=== PATIENT | female | born 1945 | race Caucasian/White ===

== ENCOUNTER 2016-08-26 20:04 | Emergency (ER) ==
[2016-08-26 20:21] VITALS: BP 189/127; TEMP 98.2; BMI 27.1
[2016-08-26] MEDS ORDERED: CATAPRES PO STA ×2 (20:39→22:57)
[2016-08-26] MEDS ORDERED: MORPHINE 2 MG/ML SYRINGE IM STA (20:39)
[2016-08-26] MEDS ORDERED: ASPIRIN CHEWABLE PO STA (20:39)
--- NOTE | 2016-08-26 20:59 | CT ---
EXAM: CT scan of the head without contrast HISTORY: Headache TECHNIQUE: Imaging of the head was performed without intravenous contrast. 5 mm thin axial images and coronal images were provided for interpretation. FINDINGS: The woo-white interface appears normal. No acute hemorrhages are seen. There is no mas s effect. The basal cisterns are patent. The paranasal sinuses and mastoid air cells are clear. Th e calvarium and extracranial soft tissues are normal. IMPRESSION: No acute intracranial abnormalities are seen.
--- NOTE | 2016-08-26 21:00 | ED.PDOC ---
General ED Provider: Dr. MARA ALFORD Chief Complaint: Headache Stated Complaint: Having migraine headache for couple days, says its her typical headache, also started telling about her chest pain, left sided, hurting for 1 months, on and off, she she takes metoprolol. Time Seen by Physician: 20:51 Mode of Arrival: Wheelchair Information Source: Patient Nursing and Triage Documentation Reviewed and Agree: Yes Neurological Complaint Exam - Headache Complaint/Exam Onset: Gradual Symptoms Are: Still present Timing: Constant Episodes Lasting: Weeks Worst Headache Ever: No Initial Severity: Moderate Current Severity: Moderate Location: Left, Frontal, Temporal Character: Reports: Throbbing, Radiating, Migraine Aggravating: Reports: Bright lights Alleviating: Reports: None Associated Signs and Symptoms: Denies: Dizziness, Seizure, Nausea, Vomiting, Sinus pressure, Fever, Neck pain, Neck stiffness, Decreased LOC, Visual changes Related History: Reports: Similar episode Related Surgical History: Reports: None SAH Risk Factors: Reports: None Meningitis Risk Factors: Reports: None SDH Risk Factors: Reports: None Temporal Arteritis Risk Factors: Reports: None Normal Head CT Within Last 12 Months: Yes Temporal Artery Tenderness: Present: None Sinus Tenderness: Present: None TMJ Tenderness: Present: None Meningeal Signs Positive: No Pain on Passive Flexion-Positive Kernig's: No ROM Limited In: No Limitiations Focal Weakness: Present: None Focal Sensory Loss: Present: None Gait: Normal Nystagmus Present: No Gag Reflex Present: Yes [id number]: Normal Findings Romberg Test Positive: No Babinski Sign: Negative Right, Negative Left Differential Diagnoses: Migraine, Other (chest pain) Review of Systems - Review Of Systems Constitutional: Reports: Malaise, Weakness Eyes: Reports: No symptoms Ears, Nose, Mouth, Throat: Reports: No symptoms Respiratory: Reports: No symptoms Cardiac: Reports: Chest pain GI: Reports: No symptoms : Reports: No symptoms Musculoskeletal: Reports: No symptoms Skin: Reports: No symptoms Neurological: Reports: Headache Endocrine: Reports: No symptoms Hematologic/Lymphatic: Reports: No symptoms All Other Systems: Reviewed and Negative Past Medical History - Past Medical History Previously Healthy: No Endocrine: Reports: None Cardiovascular: Reports: Hypertension Respiratory: Reports: None Hematological: Reports: None Gastrointestinal: Reports: None Genitourinary: Reports: None Neuro/Psych: Reports: None, Migraine, Anxiety Musculoskeletal: Reports: None Cancer: Reports: None Last Menstrual Period: 45 yrs ago - Surgical History General Surgical History: Reports: None - Family History Family History: Reports: None - Social History Smoking Status: Never smoker Hx Substance Use: No Alcohol Screening: Occasionally - Immunizations Tetanus Shot up to Date: No Physical Exam - Physical Exam Appearance: Ill-appearing, Thin Eyes: EOMI, Conjunctiva clear ENT: Ears normal, Nose normal, Oropharynx normal Respiratory: Airway patent, Breath sounds clear, Breath sounds equal, Respirations nonlabored Cardiovascular: RRR, Pulses normal, No rub, No murmur GI/: Soft, Nontender, No masses, Bowel sounds normal, No Organomegaly Musculoskeletal: Normal strength, ROM intact, No edema, No calf tenderness Skin: Warm, Dry, Normal color Neurological: Sensation intact, Motor intact, Reflexes intact, Cranial nerves intact, Alert, Oriented Psychiatric: Affect appropriate, Mood appropriate Interpretation - Radiology Interpretation Radiology Interpretation By: Radiologist Radiology Results: Negative Exam Interpreted: CT Scan Re-Evaluation - Re-Evaluation Time of Re-Evaluation: 01:02 Status: Improved Critical Care Note - Critical Care Note Total Time (mins): 0 Course - Course Hematology/Chemistry: 08/26/16 21:05 08/26/16 21:05 Orders, Labs, Meds: Lab Review 08/26/16 08/26/16 21:05 21:45 WBC 6.41 RBC 4.71 Hgb 13.9 Hct 40.8 MCV 86.6 MCH 29.5 MCHC 34.1 RDW Coeff of Frandy 14.6 Plt Count 326 Immature Gran % (Auto) 0.3 Neut % (Auto) 59.2 Lymph % (Auto) 27.0 [place] % (Auto) 11.5 H Eos % (Auto) 1.2 Baso % (Auto) 0.8 Immature Gran # (Auto) 0.0 Neut # 3.8 Lymph # 1.7 [place] # 0.7 Eos # 0.1 Baso # 0.1 Sodium 133 L Potassium 3.1 L Chloride 98 Carbon Dioxide 23 Anion Gap 15.1 BUN 22 H Creatinine 0.95 Estimated GFR (MDRD) 58.00 BUN/Creatinine Ratio 23.15 Glucose 118 H Calcium 10.0 Total Bilirubin 0.40 AST 15 ALT 12 Alkaline Phosphatase 97 Total Creatine Kinase 58 Troponin I < 0.0100 B-Natriuretic Peptide 15 Total Protein 8.3 H Albumin 4.2 Globulin 4.1 Albumin/Globulin Ratio 1.02 Urine Color Yellow Urine Clarity Clear Urine pH 7.0 Ur Specific [place] 1.015 Urine Protein Negative Urine Glucose (UA) Negative Urine Ketones Negative Urine Blood Negative Urine Nitrite Negative Urine Bilirubin Negative Urine Urobilinogen 0.2 Ur Leukocyte Esterase Trace Urine Microscopic WBC 5-10 Ur Squamous Epith Cells 2-5 Orders Category Date Time Status EKG-(ED ONLY) Stat CARDIO 08/26/16 20:42 Completed B-TYPE NATRIURETIC PEPTIDE Stat LAB 08/26/16 21:05 Completed CBC W/ AUTO DIFF Stat LAB 08/26/16 21:05 Completed COMPREHENSIVE METABOLIC PANEL Stat LAB 08/26/16 21:05 Completed CREATINE KINASE Stat LAB 08/26/16 21:05 Completed TROPONIN I Stat LAB 08/26/16 21:05 Completed URINALYSIS C & S IF INDICATED Stat LAB 08/26/16 21:45 Completed URINE CULTURE Stat LAB 08/26/16 22:01 Received URINE DRUG SCREEN (RAPID FOR ED) [DRUG SCREEN, URINE, LAB 08/26/16 20:35 Ordered RAPID] Stat Aspirin [Aspirin Chewable] MEDS 08/26/16 20:39 Discontinued 324 mg PO ONCE STA Clonidine HCl [Catapres] MEDS 08/26/16 22:57 Discontinued 0.2 mg PO ONCE STA Clonidine HCl [Catapres] MEDS 08/26/16 20:39 Discontinued 0.3 mg PO ONCE STA Lorazepam Inj [Ativan] MEDS 08/26/16 22:57 Discontinued 1 mg IM ONCE STA Morphine Sulfate [Morphine 2 mg/ml Syringe] MEDS 08/26/16 20:39 Discontinued 2 mg IM ONCE STA Potassium Chloride [K-Dur] MEDS 08/26/16 21:44 Discontinued 40 meq PO ONCE STA CT CHEST W/O CONTRAST Stat RADS 08/26/16 20:[address] HEAD W/O CONTRAST Stat RADS 08/26/16 20:35 Completed Medications Discontinued Medications Generic Name Dose Route Start Last Admin Trade Name Freq PRN Reason Stop Dose Admin Aspirin 324 mg 08/26/16 20:39 08/26/16 20:56 Aspirin Chewable PO 08/26/16 20:40 324 mg ONCE STA Administration Clonidine 0.3 mg 08/26/16 20:39 08/26/16 20:56 Catapres PO 08/26/16 20:40 0.3 mg ONCE STA Administration Clonidine 0.2 mg 08/26/16 22:57 08/26/16 23:38 Catapres PO 08/26/16 22:58 0.2 mg ONCE STA Administration Lorazepam 1 mg 08/26/16 22:57 08/26/16 23:17 Ativan IM 08/26/16 22:58 1 mg ONCE STA Administration Morphine Sulfate 2 mg 08/26/16 20:39 08/26/16 20:56 Morphine 2 Mg/Ml Syringe IM 08/26/16 20:40 2 mg ONCE STA Administration Potassium Chloride 40 meq 08/26/16 21:44 08/26/16 22:24 K-Dur PO 08/26/16 21:45 40 meq ONCE STA Administration Vital Signs: Temp Pulse Resp BP Pulse Ox 08/26/16 20:07 98.2 F 99 H 18 189/127 H 96 Departure - Departure Time of Disposition: 23:57 Disposition: HOME SELF-CARE Discharge Problem: Headache Instructions: Migraine Headache (ED) Condition: Stable Pt referred to PMD for follow-up: Yes Additional Instructions: rhc f/u in 10 days Clonidine 0.2 po bid along with metoprolol 50 po bid risk of stroke discussed Allergies/Adverse Reactions: Allergies No Known Allergies Allergy (Unverified 08/26/16 20:21) Disposition Discussed With: Patient, Family
--- NOTE | 2016-08-26 21:06 | CT ---
EXAM: CT scan of the chest without contrast HISTORY: Chest pain TECHNIQUE: Imaging of the chest was performed without contrast. 5 mm thin axial images and coronal and sagittal reconstructions were provided for interpretation. Comparison none. FINDINGS: The heart is normal size. No mediastinal masses are seen. There is scattered atheroscle rotic calcification of the thoracic aorta and coronary arteries. Lungs are clear. The soft tissues of the thorax appear within normal limits. No lytic or blastic lesions are seen within the osseous structures. IMPRESSION: No acute abnormalities are seen within the thorax.
[2016-08-26 21:15] LABS: BASOPHILS # (AUTO) 0.1 K/uL (0-0.2); BASOPHILS % (AUTO) 0.8 % (0.0-3.0); EOSINOPHILS # (AUTO) 0.1 K/ul (0.0-0.7); EOSINOPHILS % (AUTO) 1.2 % (0.0-7.0); HEMATOCRIT 40.8 % (37.0-47.0); HEMOGLOBIN 13.9 g/dl (12.0-16.0); IMMATURE GRANULOCYTE % (AUTO) 0.3 % (0.0-5.0); LYMPHOCYTES # (AUTO) 1.7 K/uL (0.60-3.4); MEAN CORPUSCULAR HEMOGLOBIN 29.5 pg (27.0-31.0); MEAN CORPUSCULAR HGB CONC 34.1 (31.8-35.4); MEAN CORPUSCULAR VOLUME 86.6 fl (81.0-99.0); MONOCYTES # (AUTO) 0.7 K/uL (0.4-2.0); MONOCYTES % (AUTO) 11.5 (0-10); NEUTROPHILS # (AUTO) 3.8 K/ul (2.0-6.9); NEUTROPHILS % (AUTO) 59.2; PLATELET COUNT 326 10^3/uL (140-440); RED BLOOD COUNT 4.71 10^6/ul (4.20-5.40); WHITE BLOOD COUNT 6.41 K/ul (4.6-10.2)
[2016-08-26 21:42] LABS: ALANINE AMINOTRANSFERASE 12 U/L (12-78); ALBUMIN 4.2 g/dL (3.4-5.0); ALBUMIN/GLOBULIN RATIO 1.02; ALKALINE PHOSPHATASE 97 U/L (53-141); ANION GAP 15.1; ASPARTATE AMINO TRANSFERASE 15 U/L (15-37); BLOOD UREA NITROGEN 22 mg/dL (7-18); BUN/CREATININE RATIO 23.15; CARBON DIOXIDE 23 mmol/L (23-31); CHLORIDE 98 mmol/L (98-107); CREATINE KINASE 58 U/L; CREATININE 0.95 mg/dL (0.60-1.30); GLUCOSE 118 mg/dL (82-115); POTASSIUM 3.1 mmol/L (3.5-5.10); SODIUM 133 mmol/L (136-145); TOTAL PROTEIN 8.3 g/dL (5.8-8.1)
[2016-08-26] MEDS ORDERED: K-DUR PO STA (21:44)
[2016-08-26 21:55] LABS: BILIRUBIN,URINE Negative (NEGATIVE); KETONES,URINE Negative (NEGATIVE); LEUKOCYTE ESTERASE ,URINE Trace (NEGATIVE); NITRITE,URINE Negative (NEGATIVE); PROTEIN,URINE Negative (NEGATIVE); URINE, BLOOD Negative (NEGATIVE)
[2016-08-26 22:01] LABS: ADD URINE MICROSCOPIC YES
[2016-08-26] MEDS ORDERED: ATIVAN IM STA (22:57)
[2016-08-27 01:46] LABS: COCAIN SCREEN,URINE NEGATIVE (NEGATIVE)
== END 2016-08-27 01:15 | disposition home or self-care (01) ==
LOC: ED 20:04
DX: G43.909 Migraine, unspecified, not intractable, without status migrainosus (principal); R07.9 Chest pain, unspecified; I10 Essential (primary) hypertension; R53.1 Weakness; Z79.899 Other long term (current) drug therapy
CPT/HCPCS: 36415; 80053; 80306; 81001; 82550; 83880; 84484; 85025; 87086; 93005; 93010; 96372; 99284